=== PATIENT | male | born 1955 | race Caucasian/White ===

== ENCOUNTER 2016-10-01 15:19 | Emergency (ER) | payer OTHER ==
[~2016-10-01] VITALS: Ht 177.8 cm; Wt 77.3 kg
[2016-10-01 18:20] VITALS: BP 162/110
== END 2016-10-01 18:24 | disposition home or self-care (01) ==
LOC: EME 15:19
DX: M54.5 Low back pain (principal); T14.8 Other injury of unspecified body region; S00.81XA Abrasion of other part of head, initial encounter; V49.40XA Driver injured in collision with unspecified motor vehicles in traffic accident, initial encounter; I10 Essential (primary) hypertension
CPT/HCPCS: 99281; 99284